=== PATIENT | female | born 1995 | race Two or more races ===

== ENCOUNTER 2025-09-17 09:58 | Emergency (ER) | payer MEDICAID ==
[~2025-09-17] VITALS: Ht 154.9 cm; Wt 87.2 kg
--- NOTE | 2025-09-17 11:07 | ED.PDOC ---
PAPER MAKER HPI Comments 30 y/o F, presents to the ED for CC of vaginal bleeding. Patient states, that she is currently [id number] and began to experience spontaneous vaginal bleeding upon wiping. Patient reports, further symptoms of mild abdominal cramping. Patient denies abdominal pain, nausea, vomiting, back pain, vaginal discharge, or recent sexual intercourse. No other symptoms or modifying factors are present at this time. Chief Complaint: Vaginal Bleed Time Seen by MD: 11:00 Reviewed Notes: Nurses Notes, Medications, Allergies Allergies: Coded Allergies: NO KNOWN ALLERGIES (Unverified , 09/17/25) Information Source: Patient Mode of Arrival: Ambulatory Timing: Days Severity: Moderate Vaginal Discharge: None Vaginal Lesions: None Bleeding Quality: Bright Red Vaginal Mass: None Onset Of Mass/Bleeding: Spontaneous Sexual Activity: Last Consensual [place]: Unknown Control: None History of: Current Associated Signs and Symptoms: Vaginal Bleeding, Cramping Past Medical History PAST MEDICAL HISTORY: Denies Surgical History: Denies all surgeries BENZENE WORKER History: Denies all BENZENE WORKER Hx Family History Family History: Unknown Social History Smoker: Non-Smoker Alcohol: Denies ETOH Use Drugs: Denies Drug Use Lives In: Home Constitutional: denies: chills, diaphoresis, fatigue, fever, malaise, sweats, weakness, others EENTM: denies: blurred vision, double vision, ear bleeding, ear discharge, ear drainage, ear pain, ear ringing, eye pain, eye redness, hearing loss, mouth pain, mouth swelling, nasal discharge, nose bleeding, nose congestion, nose pain, photophobia, tearing, throat pain, throat swelling, voice changes, others Respiratory: denies: cough, hemoptysis, orthopnea, SOB at rest, shortness of breath, SOB with excertion, stridor, wheezing, others Cardiovascular: denies: chest pain, dizzy spells, diaphoresis, Dyspnea on exertion, edema, irregular heart beat, left arm pain, lightheadedness, pal pitations, PND, syncope, others Gastrointestinal: denies: abdomen distended, abdominal pain, blood streaked bowels, constipated, diarrhea, dysphagia, difficulty swallowing, hematemesis, melena, nausea, poor appetite, poor fluid intake, rectal bleeding, rectal pain, vomiting, others Genitourinary: reports: abnormal vagina bleeding; denies: burning, dyspareunia, dysuria, flank pain, frequency, hematuria, incontinence, pain, , vagina discharge, urgency, others Neurological: denies: dizziness, fainting, headache, left sided numbness, left sided weakness, numbness, paresthesia, pre-existing deficit, right sided numbness, right sided weakness, seizure, speech problems, tingling, tremors, weakness, others Musculoskeletal: denies: back pain, gout, joint pain, joint swelling, muscle pain, muscle stiffness, neck pain, others Integumetry: denies: bruises, change in color, change in hair/nails, dryness, laceration, lesions, lumps, rash, wounds, others Allergic/Immunocompromised: denies: Difficulty Healing, Frequent Infections, Hives, Itching, others Hematologic/Lymphatic: denies: anemia, blood clots, easy bleeding, easy bruising, swollen glands, others Endocrine: denies: excessive hunger, excessive sweating, excessive thirst, excessive urination, flushing, intolerance to cold, intolerance to heat, unexplained weight gain, unexplained weight loss, others Psychiatric: denies: anxiety, bipolar disorder, depression, hopeless, panic disorder, schizophrenia, sleepless, suicidal, others All Other Systems: Reviewed and Negative Physical Exam General Appearance: No Apparent Distress, Normal HEENT: Normal ENT Inspection, Pharynx Normal Neck: Full Range of Motion, Non-Tender, Normal, Normal Inspection Respiratory: Chest Non-Tender, Lungs Clear, No Accessory Muscle Use, No Respiratory Distress, Normal Breath Sounds Cardiovascular: No Edema, No Murmur, No Gallop, Normal Peripheral Pulses, Regular Rate/Rhythm Breast Exam: Deferred Gastrointestinal: No Organomegaly, Non Tender, No Pulsatile Mass, Normal Bowel Sounds, Soft Genitalia: Deferred Pelvic: Deferred Rectal: Deferred Extremities: No calf tenderness, Normal capillary refill, Normal inspection, Normal range of motion, Non-tender, No pedal edema Musculoskeletal : Apperance: Normal Neurologic: Alert, wood model maker II-XII nml as Tested, No Motor Deficits, Normal Affect, Normal Mood, No Sensory Deficits Cerebellar Function: Normal Reflexes: Normal Skin: Dry, Normal Color, Warm Lymphatic: No Adenopathy Was a procedure done? Was a procedure done?: No Differential Diagnosis (BENZENE WORKER) Vaginal Bleeding: - Inevitable, - Missed, - Threatened, UTI, Other (subchorionic hemorrhage) X-Ray, Labs, Meds, VS Vital Signs Date Time Temp Pulse Resp B/P (MAP) Pulse Ox O2 Delivery O2 Flow Rate FiO2 09/17/25 10:15 98.2 83 18 104/73 (83) 100 98.2 09/17/25 10:00 98.3 85 16 136/92 95 98.3 Lab Test 09/17/25 11:02 09/17/25 10:57 Range/Units Urine Color Light-yellow Yellow Urine Clarity Clear Clear Urine pH 6.0 5.0-9.0 Urine Specific [place] 1.011 1.001-1.035 Urine Protein Negative Negative Urine Ketones Negative Negative Urine Blood 2+ H Negative /uL Urine Nitrite Negative Negative Urine Bilirubin Negative Negative Urine Urobilinogen Normal Negative mg/dL Urine Leukocyte Esterase 3+ Negative /uL Urine RBC 2 0 - 4 /hpf Urine Microscopic WBC 4 0-5 /HPF Urine Squamous Epithelial Cells Few <5 /hpf Urine Bacteria Few H None Seen /hpf Urine Glucose Normal Normal mg/dL White Blood Count 6.1 4.4-10.8 10^3/uL Red Blood Count 4.13 4.0-5.20 10^6/uL Hemoglobin 12.3 12.2-16.2 g/dL Hematocrit 36.1 36.0-46.0 % Mean Corpuscular Volume 87.4 80.0-100.0 fL Mean Corpuscular Hemoglobin 29.9 28.0-32.0 pg Mean Corpuscular Hemoglobin Concent 34.2 32.0-36.0 g/dL Red Cell Distribution Width 13.6 11.8-14.3 % Platelet Count 217 140-450 10^3/uL Mean Platelet Volume 8.7 6.9-10.8 fL Neutrophils (%) (Auto) 69.2 37.0-80.0 % Lymphocytes (%) (Auto) 23.3 10.0-50.0 % Monocytes (%) (Auto) 5.5 0.0-12.0 % Eosinophils (%) (Auto) 1.7 0.0-7.0 % Basophils (%) (Auto) 0.3 0.0-2.0 % Neutrophils # (Auto) 4.2 1.6-8.6 10 ^3/uL Lymphocytes # (Auto) 1.4 0.4-5.4 10 ^3/uL Monocytes # (Auto) 0.3 0-1.3 10 ^3/uL Eosinophils # (Auto) 0.1 0-0.8 10 ^3/uL Basophils # (Auto) 0 0-0.2 10 ^3/uL Nucleated Red Blood Cells 0.1 % Sodium Level 138 136-145 mmol/L Potassium Level 3.6 3.5-5.1 mmol/L Chloride Level 103 98-107 mmol/L Carbon Dioxide Level 25 20-31 mmol/L Anion Gap 10 5-15 Blood Urea Nitrogen 6 L 9-23 mg/dL Creatinine 0.66 0.550-1.02 mg/dL Glomerular Filtration Rate Calc 122 >90 mL/min BUN/Creatinine Ratio 9.1 L 10.0-20.0 Serum Glucose 97 74-106 mg/dL Calcium Level 9.4 8.7-10.4 mg/dL Beta HCG, Quantitative 66246.4 H 1.5-4.2 mIU/mL [place] [id number] Ph: [phone] DIAGNOSTIC IMAGING Diagnostic Imaging Report : [id number] Signed PATIENT: HECTOR AG ACCT: [id number] UNIT: [id number] : 1995 LOC: ER ROOM / BED: / AGE / SEX: 30 / F ADM STATUS: REG ER SERVICE [id number] ORDERING PHYSICIAN: CELY NEWSOME MD PROCEDURE(s): OB4US - OB ULTRASOUND COMP LESS 14WKS REASON: abdominal pain and vaginal bleeding ORDER NUMBER(s): [id number], ACCESSION NUMBER(s): [id number] OB ULTRASOUND <14 WEEKS: HISTORY: abdominal pain and vaginal bleeding TECHNIQUE: Multiple real-time grayscale sonographic images of the pelvis with duplex Doppler color flow, spectral and M-mode analysis. FINDINGS: The uterus measures 11.1 x 5.4 x 8.7 cm, and is homogeneous Right ovary measures 3 x 2 x 2.7 cm with normal Doppler color flow. 1.9 x 1.4 x 1.7 cm hypoechoic structure within the right ovary with peripheral vascularity may reflect a corpus luteal or hemorrhagic cyst. Left ovary measures 2.5 x 1.5 x 2.1 cm with normal Doppler color flow IUP single live fetus at 10 weeks and 4 days average ultrasound age based on mean crown-rump length of 4.5 cm and gestational sac size of 4.3 cm heart rate detected at 159 beats per minute. IMPRESSION: 1. Single intrauterine with gestational age of 10 weeks and 4 days. ESEQUIEL of 04/11/2026. 2. heart rate of 159 beats per minute. 3. Gestational sac measuring over 1 week under a pole. Close monitoring on follow-up sonogram is warranted. 4. Hypoechoic structure with peripheral vascularity measuring 1.9 cm may reflect a corpus luteal or hemorrhagic cyst. ATED BY: DAIJA VINSON MD DICTATED DATE/TIME: 09/17/25 1151 SIGNED BY: DAIJA VINSON MD SIGNED DATE/TIME: 09/17/25 1151 CC: Time of 1ST Reevaluation: 11:30 Reevaluation 1ST: Unchanged Patient Education/Counseling: Diagnosis, Treatment Family Education/Counseling: No Family Present Departure 1 Departure Time of Disposition: 12:58 (Patient likely with a threatened miscarriage. Blood work and ultrasound are benign.) Impression: Primary Impression: Threatened miscarriage Disposition: 01 HOME / SELF CARE / HOMELESS Condition: Stable Additional Instructions: You have a threatened miscarriage. Your beta hcg level today was 39060. Your ultrasound showed Single intrauterine with gestational age of 10 weeks and 4 days. You should follow up with OBGYN within three days to recheck your blood work. If your symptoms worsen or you have any other concerns then please return to the ER. Discharged With: Self Critical Care Note Critical Care Time?: No Stability Stability form required: No Heart Score Heart Score: Heart Score Response (Comments) Value History N/A 0 EKG N/A 0 Age N/A 0 Risk Factors N/A 0 Troponin N/A 0 Total 0 I personally scribed for CELY NEWSOME MD ([email or web address]) on 09/17/25 at 11:07. Electronically submitted by Juana Cordero ([email or web address]). I personally scribed for CELY NEWSOME MD ([email or web address]) on 09/17/25 at 12:20. Electronically submitted by Juana Cordero ([email or web address]). CELY NEWSOME MD Sep 17, 2025 11:07
[2025-09-17 11:16] LABS: Hematocrit 36.1 % (36.0-46.0); Hemoglobin 12.3 g/dL (12.2-16.2); Mean Corpuscular Hemoglobin 29.9 pg (28.0-32.0); Mean Corpuscular Volume 87.4 fL (80.0-100.0); Nucleated Red Blood Cells % 0.1 %
[2025-09-17 11:20] LABS: Chloride 103 mmol/L (98-107); Potassium 3.6 mmol/L (3.5-5.1); Sodium 138 mmol/L (136-145)
[2025-09-17 11:21] LABS: Anion Gap 10 (5-15); Carbon Dioxide 25 mmol/L (20-31)
[2025-09-17 11:22] LABS: Calcium 9.4 mg/dL (8.7-10.4)
[2025-09-17 11:26] LABS: BUN/Creatinine Ratio 9.1 (10.0-20.0); Glucose 97 mg/dL (74-106)
[2025-09-17 11:28] LABS: Blood Urea Nitrogen 6 mg/dL (9-23)
[2025-09-17 11:35] LABS: Urine Protein, UAD Negative (Negative)
--- NOTE | 2025-09-17 11:54 | DVH ---
OB ULTRASOUND <14 WEEKS: HISTORY: abdominal pain and vaginal bleeding TECHNIQUE: Multiple real-time grayscale sonographic images of the pelvis with duplex Doppler color flow, spectral and M-mode analysis. FINDINGS: The uterus measures 11.1 x 5.4 x 8.7 cm, and is homogeneous Right ovary measures 3 x 2 x 2.7 cm with normal Doppler color flow. 1.9 x 1.4 x 1.7 cm hypoechoic structure within the right ovary with peripheral vascularity may reflect a corpus luteal or hemorrhagic cyst. Left ovary measures 2.5 x 1.5 x 2.1 cm with normal Doppler color flow IUP single live fetus at 10 weeks and 4 days average ultrasound age based on mean crown-rump length of 4.5 cm and gestational sac size of 4.3 cm heart rate detected at 159 beats per minute. IMPRESSION: 1. Single intrauterine with gestational age of 10 weeks and 4 days. ESEQUIEL of 04/11/2026. 2. heart rate of 159 beats per minute. 3. Gestational sac measuring over 1 week under a pole. Close monitoring on follow-up sonogram is warranted. 4. Hypoechoic structure with peripheral vascularity measuring 1.9 cm may reflect a corpus luteal or hemorrhagic cyst.
[2025-09-17 13:19] VITALS: BP 130/82; PULSE 89; RESP 16; TEMP 98.4; O2SAT 99
== END 2025-09-17 13:31 | disposition home or self-care (01) ==
LOC: ER 09:58
DX: O20.0 Threatened abortion (principal); Z3A.10 10 weeks gestation of pregnancy
CPT/HCPCS: 36415; 76801; 80048; 81001; 84702; 85025; 86900; 86901